=== PATIENT | female | born 1945 | race Two or more races ===

== ENCOUNTER 2018-03-16 09:45 | Emergency (ER) | payer OTHER ==
[~2018-03-16] VITALS: Ht 165.1 cm; Wt 79.4 kg
[~2018-03-16 09:45] MED LIST: HUMALOG MIX 50/53 ML; INTESTINEX1 CA1 PO; LANTUS SOL100 UNIT/1; SANDOSTATIN30 MG/KIT; ULTRAM ER200 MG PO; XANAX1 MG
[2018-03-16] MEDS ORDERED: SYNTHROID175 MCG (10:07)
[2018-03-16] MEDS ORDERED: FLAGYL500MG PO (18:51)
[2018-03-16] MEDS ORDERED: CIPRO500 MG PO (18:51)
== END 2018-03-16 20:00 | disposition home or self-care (01) ==
LOC: ER 09:45
DX: K57.92 Diverticulitis of intestine, part unspecified, without perforation or abscess without bleeding (principal)

== ENCOUNTER 2018-06-15 08:25 | Outpatient (CLI) | payer OTHER ==
[~2018-06-15 08:25] MED LIST changes: +CIPRO500 MG PO; +FLAGYL500MG PO; +SYNTHROID175 MCG
== END 2018-06-15 15:51 | disposition home or self-care (01) ==
LOC: TOM 08:25
DX: C70.0 Malignant neoplasm of cerebral meninges (principal); B02.8 Zoster with other complications
CPT/HCPCS: 74170; Q9965

== ENCOUNTER 2019-09-28 07:27 | Outpatient (CLI) | payer OTHER | END 2019-09-28 07:33 | disposition home or self-care (01) | LOC: RX STUDY 07:27 | PROVIDERS: ATTEND Colon & Rectal Surgery | DX: K56.50 Intestinal adhesions [bands], unspecified as to partial versus complete obstruction (principal) ==

== ENCOUNTER 2020-10-14 08:00 | Outpatient (CLI) | payer OTHER | END 2020-10-14 08:30 | disposition home or self-care (01) | LOC: PPH VACUNA 08:00 | DX: Z23 Encounter for immunization (principal) ==

== ENCOUNTER 2020-11-20 07:26 | Outpatient (CLI) | payer OTHER | END 2020-11-20 07:37 | disposition home or self-care (01) | LOC: MRI 07:26 | PROVIDERS: ATTEND Internal Medicine Hematology & Oncology | DX: K86.2 Cyst of pancreas (principal); C7B.02 Secondary carcinoid tumors of liver | CPT/HCPCS: 74183; A9575 ==

== ENCOUNTER 2021-02-28 05:40 | Day surgery (SDC) | payer OTHER | END 2021-02-28 10:10 | disposition home or self-care (01) | LOC: AMB-ENDOS 05:40 | PROVIDERS: ATTEND Colon & Rectal Surgery | DX: D13.1 Benign neoplasm of stomach (principal); K44.9 Diaphragmatic hernia without obstruction or gangrene; K64.0 First degree hemorrhoids; Z20.822 Contact with and (suspected) exposure to COVID-19 ==